=== PATIENT | male | born 1965 | race Caucasian/White ===

== ENCOUNTER 2018-12-01 07:28 | Day surgery (SDC) | payer BC ==
[~2018-12-01] VITALS: Ht 180.3 cm; Wt 99.8 kg
--- NOTE | ~2018-12-01 | OR ---
[facility] [address], [place] [address] [place] DATE OF OPERATION: 12/01/2018 SURGEON: Lula Veloz MD PREOPERATIVE DIAGNOSES: 1. Pruritus ani. 2. Intermittent rectal bleeding. 3. Perianal skin lesion. POSTOPERATIVE DIAGNOSES: 1. Minimal to moderate pruritus ani. 2. Posterior external anal skin tag x1 (4 x 6 mm). 3. Moderate sigmoid diverticulosis. 4. Minimal to moderate internal hemorrhoids. PROCEDURE: Colonoscopy without biopsy. ESTIMATED BLOOD LOSS: None. INDICATIONS: Ildefonso is a 53-year-old gentleman asked to see me initially in 2010 for his pruritus ani. He has some intermittent rectal bleeding. 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 Of course, spending all day in his truck aggravates that pruritis ani. He has also had trouble with some type of a skin lesion around the anus. He was quite worried about that as well. He had been asked to come see me with respect to the above and for a colonoscopy. Otherwise, there is no family history of colon cancer or polyps. I gave Ildefonso a pamphlet on colonoscopy. We looked at that together along with the risks including, but not limited to gas bloating, crampy abdominal pain, bleeding, perforation, requiring surgery, and missed diagnosis. We also discussed the need for IV conscious sedation. He had expressed understanding and wished to proceed. PROCEDURE NOTE: Ildefonso was taken into our endoscopy suite and placed in the left lateral decubitus position. He was given a total of 10 mg of Versed and 150 mcg of fentanyl to cover the case. A digital rectal exam was performed and he has good sphincter tone. The prostate is slightly enlarged in moderately indurated. No dominant nodules. The left is a little more prominent than the right. Again, he has some pruritus ani with the pale skin with islands of granulation tissue and papillomatosis of some of that skin. He PATIENT NAME: ILDEFONSO HOWE OPERATIVE REPORT DATE OF : 67 REPORT #: [id number] PHYSICIAN: LULA VELOZ MD PCP: ALEXIS ABERNATHY REPORT IS CONFIDENTIAL AND NOT TO BE RELEASED WITHOUT AUTHORIZATION [facility] [address], [place] [address] [place] also has external anal skin tag about 3 or 4 mm wide, by 46 mm in length. After this, the adult colonoscope was introduced and advanced all around into the cecum under direct visualization of camera. He has a moderately long and tortuous and somewhat narrow sigmoid colon with moderate diverticulosis. Consequently, it took extra sedation and abdominal compression in order to advance the scope up to the ileocecal valve. We made multiple efforts to get directly into the cecum itself without success. We insufflated air and used compression and so forth and never quite could see behind the ileocecal valve. Nevertheless, his prep was quite good. The scope was slowly withdrawn. Again, he had moderate sigmoid diverticulosis. They are moderate in size, moderate in number, and scattered about. His sigmoid colon is somewhat long and somewhat narrow and tortuous. The rectum itself was unremarkable. Upon retroflexion of scope, he has [id number]-[id number] standard internal hemorrhoid columns. After this, the gas was suctioned out and the colonoscope removed. Ildefonso tolerated the procedure quite well. RECOMMENDATIONS: Ildefonso will follow up in my office in 10 years for repeat colonoscopy. If he has concerns or questions regarding the skin tag or his pruritus ani, he is certainly welcome to call make an appointment for followup. Lula Veloz MD ALB/MODL /[id number] cc: MD Alexis Juarez FNP Copies: LULA VELOZ MD, WADE R FNP ~ PATIENT NAME: ILDEFONSO HOWE OPERATIVE REPORT DATE OF : 67 REPORT #: [id number] PHYSICIAN: LULA VELOZ MD PCP: ALEXIS ABERNATHY REPORT IS CONFIDENTIAL AND NOT TO BE RELEASED WITHOUT AUTHORIZATION
[~2018-12-01 07:28] MED LIST: CLARITIN10 MG PO; CRUTCH1 EACH MISC; HYDROCHLOROTHIA25 MG PO; IBUPROFEN800 MG PO; LOSARTAN-HCTZ1 EACH PO; MULTI VITAMIN1 EACH PO; PERCOCET 5-3251 EACH PO; PRILOSEC20 MG PO; ZOCOR20 MG PO
--- NOTE | 2018-12-01 09:49 | NUR ---
12/01/18 0949 Cami Blake 0944-PATIENT ARRIVED TO PACU ON 6L MASK PLACED ON 3L NC. PATIENT REACTIVE TO VOICE OPENING EYES ORIENTED TO PACU. VERY DROWSY DOZES BACK TO SLEEP SNORING. SB SCORE OF 4 WILL SEND SLEEP APNEA HANDOUT. ABDOMEN SOFT.
--- NOTE | 2018-12-01 09:55 | NUR ---
PT IS ALERT, ORIENTED AND SUPPORTED BY HIS TON. THIS IS PT'S FIRST SCOPE, PREP WAS A LITLE DIFFICULT. PT DECLINED PRAYER, WILL FOLLOW NEEDED
--- NOTE | 2018-12-01 11:43 | NUR ---
VISITED WITH PT'S TON SHE WAS WAITING. SHE SEEMED UPSET, AND I VISITED WITH HER, SHE BEGAN TO TELL ME ABOUT NOT ONLY HER MED ISSUES, BUT ALSO BEGAN TO SHARE WITH ME ABOUT HER BROTHER WHO HAS MET. CANCER, AND HIS B-DAY IS THIS WEDNESDAY WITH THE FAMILY ALL THERE. SHE FEARS IT WILL BE HIS LAST. WE HAD A GOOD VISIT, GAVE ENCOURAGEMENT AND WILL FOLLOW NEEDED
== END 2018-12-01 10:35 | disposition home or self-care (01) ==
LOC: OPS 07:28 → DS 07:28 → OPS 09:00
PROVIDERS: Colon & Rectal Surgery
PROC: 0DJD8ZZ Inspection of Lower Intestinal Tract, Via Natural or Artificial Opening Endoscopic (ICD-10-PCS; principal; 2018-12-01 09:00)
DX: K64.8 Other hemorrhoids (principal); K64.4 Residual hemorrhoidal skin tags; K63.89 Other specified diseases of intestine; K57.30 Diverticulosis of large intestine without perforation or abscess without bleeding; L29.0 Pruritus ani; N40.0 Benign prostatic hyperplasia without lower urinary tract symptoms; F17.220 Nicotine dependence, chewing tobacco, uncomplicated; Z79.899 Other long term (current) drug therapy
CPT/HCPCS: 99153; G0500; J2250; J3010; J7120